=== PATIENT | male | born 1970 | race Caucasian/White ===

== ENCOUNTER 2018-07-30 16:02 | Inpatient (IN) | payer MEDICAID ==
[~2018-07-30] VITALS: Ht 195.6 cm; Wt 131.5 kg
[2018-07-30] MEDS ORDERED: ASPIRIN 81MG TABLET PO ONE (16:45)
[2018-07-30] MEDS ORDERED: NITROGLYCERIN 0.4MG TABLET SL SL PRN ×2 (16:45→18:45)
[2018-07-30 17:19] LABS: BASOPHILS % 0.4 % (0.0-2.0); EOSINOPHILS % 0.6 % (0.0-5.0); HEMATOCRIT. 43.3 % (42.0-52.0); HEMOGLOBIN. 14.5 g/dL (14.0-18.0); LYMPHOCYTES % 15.5 % (20.0-50.0); MEAN CORPUSCULAR HEMOGLOBIN 29.4 pg (28.0-32.0); MEAN CORPUSCULAR VOLUME 87.9 fL (80.0-94.0); MEAN PLATELET VOLUME 9.2 fl (7.4-10.4); MONOCYTES % 6.5 % (2.0-8.0); PLATELET 257 x1000/uL (130-400); RED BLOOD CELL COUNT 4.93 mill/uL (4.7-6.1); RED CELL DISTRIBUTION WIDTH 13.5 % (11.6-14.6)
[2018-07-30 17:27] LABS: CHLORIDE 103 mEq/L (98-107)
[2018-07-30 18:39] LABS: *AMPHETAMINES SCREEN URINE PRESUMTIVE POSITIVE (NEGATIVE); *BARBITURATES SCREEN URINE NEGATIVE (NEGATIVE); *BENZODIAZEPINES SCREEN URINE NEGATIVE (NEGATIVE); *COCAINE SCREEN URINE NEGATIVE (NEGATIVE)
[2018-07-30 18:40] LABS: CANNABINOID URINE SCREEN NEGATIVE (NEGATIVE); METHADONE URINE SCREEN PRESUMTIVE POSITIVE (NEGATIVE); OPIATES URINE SCREEN NEGATIVE (NEGATIVE); PHENCYCLIDINE URINE SCREEN NEGATIVE (NEGATIVE)
[2018-07-30] MEDS ORDERED: ZOLPIDEM TARTRATE 5MG TABLET PO PRN (18:45)
[2018-07-30] MEDS ORDERED: DOCUSATE SODIUM 100MG CAPSULE PO PRN (18:45)
[2018-07-30] MEDS ORDERED: MAGNESIUM/ALUMINUM HYDROXIDE/SIMETHICONE 30ML UDC PO PRN (18:45)
[2018-07-30] MEDS ORDERED: CLONIDINE 0.1MG TABLET PO PRN (18:45)
[2018-07-30] MEDS ORDERED: ONDANSETRON HCL 4MG/2ML INJ IV PRN (18:45)
[2018-07-30] MEDS ORDERED: ACETAMINOPHEN 325MG TABLET PO PRN (18:45)
[2018-07-30] MEDS ORDERED: IPRATROPIUM/ALBUTEROL 0.5-3(2.5)MG/3ML NEB INH PRN (18:45)
[2018-07-30] MEDS ORDERED: GUAIFENESIN 200MG/10ML SUGAR FREE UDC PO PRN (18:45)
[2018-07-30] MEDS ORDERED: KETOROLAC 15MG/ML VIAL IV PRN (19:30)
[2018-07-30] MEDS: LORAZEPAM 0.5MG TABLET PO PRN (19:46)
[2018-07-30] MEDS ORDERED: NA PHOS,M-B/NA PHOS,DI-BA ENEMA 118ML PR PRN (21:00)
[2018-07-30 21:15] VITALS: BP 164/93
[2018-07-30 21:20] VITALS: BP 164/93
[2018-07-30] MEDS: LISINOPRIL 20MG TABLET PO SCH (22:38)
[2018-07-30] MEDS: FAMOTIDINE 20MG TABLET PO SCH (22:38)
[2018-07-30] MEDS: METOPROLOL TARTRATE 25MG TABLET PO SCH (22:38)
[2018-07-30] MEDS ORDERED: LORA-250 MT (23:17)
[2018-07-30] MEDS ORDERED: METH-611 MT (23:17)
[2018-07-31] VITALS: BP 150/92
[2018-07-31 00:08] LABS: CREATINE KINASE 369 IU/L (39-308)
[2018-07-31 00:10] LABS: CREATINE KINASE MB FRACTION 1.9 ng/mL (0.5-3.6)
[2018-07-31 04:00] VITALS: BP 147/91
[2018-07-31] MEDS: LORAZEPAM 0.5MG TABLET PO PRN (05:47)
[2018-07-31 08:00] VITALS: BP 155/93
[2018-07-31] MEDS ORDERED: ENOXAPARIN 30MG/0.3ML SYR SUBCUT SCH (09:00)
[2018-07-31] MEDS ORDERED: ASPIRIN 325MG EC TABLET PO SCH (09:00)
[2018-07-31] MEDS: FAMOTIDINE 20MG TABLET PO SCH (09:38)
[2018-07-31] MEDS: LISINOPRIL 20MG TABLET PO SCH (09:38)
[2018-07-31] MEDS: METOPROLOL TARTRATE 25MG TABLET PO SCH (09:38)
[2018-07-31 10:16] LABS: CREATINE KINASE 466 IU/L (39-308)
[2018-07-31 10:19] LABS: CREATINE KINASE MB FRACTION 2.1 ng/mL (0.5-3.6)
[2018-07-31 11:25] VITALS: BP 153/94
[2018-08-01] MEDS ORDERED: METH-611 MT (17:15)
== END 2018-07-31 12:08 | disposition home or self-care (01) | DRG 812 ==
LOC: ER 16:02 → 6WST 17:46 → EDBEDREQ 17:49 → EDBEDREQTM 17:49 → ENRESERV 20:20
PROVIDERS: ADMIT Internal Medicine; ATTEND Internal Medicine
DX: T43.621A Poisoning by amphetamines, accidental (unintentional), initial encounter (principal); F15.10 Other stimulant abuse, uncomplicated; I99.8 Other disorder of circulatory system; I10 Essential (primary) hypertension; Z79.899 Other long term (current) drug therapy; Z71.51 Drug abuse counseling and surveillance of drug abuser; Y92.89 Other specified places as the place of occurrence of the external cause; Z90.5 Acquired absence of kidney; F17.210 Nicotine dependence, cigarettes, uncomplicated; Z88.8 Allergy status to other drugs, medicaments and biological substances; Z71.6 Tobacco abuse counseling
CPT/HCPCS: 36415; 71045; 80053; 80061; 80305; 82550; 82553; 83036; 84484; 85025; 93005; 93970; 96374; 99285; G0482; J1650; J1885